=== PATIENT | female | born 2000 | race Two or more races ===

== ENCOUNTER 2024-11-03 16:18 | Emergency (ER) | payer OTHER ==
[~2024-11-03] VITALS: Ht 152.4 cm; Wt 85.7 kg
[2024-11-03] MEDS ORDERED: PRENATE DHA SO1 EAC1 (16:54)
[2024-11-03 20:11] LABS: BASO % 0.2 % (0.1-1.2); EOS # 0.14 (0.04-0.54); EOS % 1.1 % (0.7-7.0); LYMPH # 1.97 (1.18-3.74); LYMPH % 16.0 % (19.3-53.1); MEAN PLATELET VOLUME 10.00 fl (9.4-12.4); MONO # 0.97 (0.24-0.82); MONO % 7.9 % (4.7-12.5); NEUT # 9.15 (1.56-6.13); NEUT % 74.4 % (34.0-71.1); RED CELL DISTRIBUTION WIDTH 14.0 % (11.6-14.4)
[2024-11-03 20:34] LABS: COVID-19 AG NEGATIVE (NEGATIVE)
[2024-11-03] MEDS ORDERED: CEPHALEXIN500 M1 PO (20:48)
[2024-11-03] MEDS ORDERED: PEPCID AC20 MG PO (20:48)
== END 2024-11-03 20:54 | disposition home or self-care (01) ==
LOC: ER 16:18
PROVIDERS: General Practice
DX: O26.893 Other specified pregnancy related conditions, third trimester (principal); Z3A.29 29 weeks gestation of pregnancy; J00 Acute nasopharyngitis [common cold]; Z20.822 Contact with and (suspected) exposure to COVID-19

== ENCOUNTER 2024-12-26 05:28 | Inpatient (IN) | payer OTHER ==
[~2024-12-26] VITALS: Ht 152.4 cm; Wt 1.8 kg
[~2024-12-26 05:28] MED LIST: CEPHALEXIN500 M1 PO; PEPCID AC20 MG PO; PRENATE DHA SO1 EAC1
[2024-12-26 05:49] VITALS: BP 113/71
[2024-12-26] MEDS ORDERED: ADULT LOW DOSE81 M1 PO (06:10)
[2024-12-26] MEDS ORDERED: RINGERS SOLUTION,LACTATED 1,000 ML IV SCH (06:15)
[2024-12-26 06:51] LABS: BASO % 0.3 % (0.1-1.2); EOS # 0.10 (0.04-0.54); EOS % 1.0 % (0.7-7.0); LYMPH # 2.48 (1.18-3.74); LYMPH % 25.9 % (19.3-53.1); MEAN PLATELET VOLUME 10.50 fl (9.4-12.4); MONO # 0.86 (0.24-0.82); MONO % 9.0 % (4.7-12.5); NEUT # 6.06 (1.56-6.13); NEUT % 63.3 % (34.0-71.1); RED CELL DISTRIBUTION WIDTH 13.6 % (11.6-14.4)
[2024-12-26 07:05] LABS: ALT/SGPT 15.0 U/L (12-78); AST/SGOT 14.0 U/L (15-37); BILIRUBIN TOTAL 0.15 mg/dL (0.3-1.2); BUN CREA RATIO 25.0 (7.0-25.0); CREATININE SERUM 0.48 mg/dL (0.55-1.02); GFR 157.58; GLOBULINA 3.3 G/DL (2.4-3.5); GLUCOSE FASTING 84.0 mg/dL (65-100); OSMOLALITY SERUM 275.0 MOSM/KG (275-295)
[2024-12-26 07:10] LABS: INR < 0.93
[2024-12-26 07:33] VITALS: BP 113/64
[2024-12-26] MEDS ORDERED: MISOPROSTOL 25 MCG/4 ML GEL.W.APPL VAG NR (09:00)
[2024-12-26 09:31] LABS: URINE APPEARANCE Clear; URINE BILIRRUBIN Negative (NEGATIVE); URINE BLOOD Negative; URINE COLOR Yellow; URINE GLUCOSE Negative (NEGATIVE); URINE KETONE 15 (NEGATIVE); URINE LEUKOCYTE Negative; URINE NITRATE Negative; URINE PROTEIN Negative (NEGATIVE); URINE UROBILINOGEN 0.2 E.U./dl
[2024-12-26 09:32] LABS: URINE BACTERIA 46.7 uL (0.0-1933); URINE EPITHELIAL CELLS 5.0 uL (0.0-38.8); URINE RBC 3.0 uL (0.0-20.8); URINE WBC 2.7 uL (0.0-23.2)
[2024-12-26 09:41] LABS: URINE CAST 0.29 uL (0.0-1.40)
[2024-12-26 11:18] VITALS: BP 101/60
[2024-12-26] MEDS ORDERED: MISOPROSTOL 25 MCG/4 ML GEL.W.APPL VAG ONE ×2 (12:45→21:00)
[2024-12-26 15:52] VITALS: BP 114/67
[2024-12-26] MEDS ORDERED: MISOPROSTOL 25 MCG/4 ML GEL.W.APPL ONE (17:51)
[2024-12-26 19:19] VITALS: BP 113/69
[2024-12-26 19:24] VITALS: BP 127/63
[2024-12-26] MEDS ORDERED: OXYTOCIN 10 UNITS/ML VIAL ONE (21:28)
[2024-12-26] MEDS ORDERED: ERYTHROMYCIN BASE OPHT 1GM EACH TUBE OP ONE (21:28)
[2024-12-26] MEDS ORDERED: CEFAZOLIN SODIUM 1,000 MG VIAL ONE (21:46)
[2024-12-26] MEDS ORDERED: KETOROLAC TROMETHAMINE 60 MG VIAL IM ONE (23:45)
[2024-12-26] MEDS ORDERED: MORPHINE SULFATE 4 MG/ML CARTRIDGE IV SCH (23:45)
[2024-12-27 03:10] VITALS: BP 123/80
[2024-12-27 03:13] LABS: BASO % 0.2 % (0.1-1.2); EOS # 0.04 (0.04-0.54); EOS % 0.3 % (0.7-7.0); LYMPH # 2.04 (1.18-3.74); LYMPH % 17.3 % (19.3-53.1); MEAN PLATELET VOLUME 10.50 fl (9.4-12.4); MONO # 0.97 (0.24-0.82); MONO % 8.2 % (4.7-12.5); NEUT # 8.67 (1.56-6.13); NEUT % 73.7 % (34.0-71.1); RED CELL DISTRIBUTION WIDTH 13.5 % (11.6-14.4)
[2024-12-27] MEDS ORDERED: SIMETHICONE 125 MG CAPSULE PO ONE (07:00)
[2024-12-27] MEDS ORDERED: ACETAMINOPHEN 325 MG TABLET PO SCH (08:00)
[2024-12-27] MEDS ORDERED: OxyCODONE HCL 5 MG TABLET (ROXICODONE) PO SCH (08:00)
[2024-12-27 08:21] VITALS: BP 130/80
[2024-12-27] MEDS ORDERED: DOCUSATE SODIUM 100MG CAP PO SCH (09:00)
[2024-12-27 16:57] VITALS: BP 124/81
[2024-12-28 00:58] VITALS: BP 114/80
[2024-12-28 03:00] VITALS: BP 120/78
[2024-12-28 08:00] VITALS: BP 129/80
[2024-12-28 16:00] VITALS: BP 113/77
[2024-12-29 01:41] VITALS: BP 119/83
== END 2024-12-29 14:16 | disposition home or self-care (01) | DRG 788 ==
LOC: LDR 05:28 → OB/GYN 05:28 → LDR 05:32 → OB/GYN 12-27 01:09
PROVIDERS: ADMIT Specialist; ATTEND Specialist
PROC: 4A1HXCZ Monitoring of Products of Conception, Cardiac Rate, External Approach (ICD-10-PCS; 2024-12-26)
PROC: 3E033VJ Introduction of Other Hormone into Peripheral Vein, Percutaneous Approach (ICD-10-PCS; 2024-12-26)
PROC: 3E0P7VZ Introduction of Hormone into Female Reproductive, Via Natural or Artificial Opening (ICD-10-PCS; 2024-12-26)
PROC: 10D00Z1 Extraction of Products of Conception, Low, Open Approach (ICD-10-PCS; principal; 2024-12-26 22:30)
DX: O61.0 Failed medical induction of labor (principal); O62.1 Secondary uterine inertia; O36.5930 Maternal care for other known or suspected poor fetal growth, third trimester, not applicable or unspecified; Z3A.37 37 weeks gestation of pregnancy; Z37.0 Single live birth; O13.4 Gestational [pregnancy-induced] hypertension without significant proteinuria, complicating childbirth